=== PATIENT | female | born 1965 | race Caucasian/White ===

== ENCOUNTER 2020-07-21 10:30 | Outpatient (CLI) | payer OTHER | END 2020-07-21 11:00 | disposition home or self-care (01) | LOC: D.MAMMO 10:30 | PROVIDERS: ATTEND Family Medicine | DX: R92.8 Other abnormal and inconclusive findings on diagnostic imaging of breast (principal) ==

== ENCOUNTER 2020-07-24 11:54 | Outpatient (CLI) | payer OTHER | END 2020-07-24 23:59 | disposition home or self-care (01) | LOC: D.MAMMO 11:54 | PROVIDERS: ATTEND Family Medicine | DX: R92.8 Other abnormal and inconclusive findings on diagnostic imaging of breast (principal) ==